=== PATIENT | male | born 1960 | race African-American/Black ===

== ENCOUNTER 2019-12-09 17:24 | Inpatient (IN) | payer OTHER ==
[~2019-12-09] VITALS: Ht 180.3 cm; Wt 59.9 kg
[2019-12-09] MEDS ORDERED: ACETAMINOPHEN 325 MG TABLET PO ONE (18:00)
--- NOTE | 2019-12-09 18:37 | NUR ---
PT REC'D TO ER VIA EMS PT WAS DRINKING FOR 3 DAYS POOR VEINS UNABLE TO ACCESS A LINE UA SENT TO [facility]ALUATION BY ER PROVIDER.
[2019-12-09 18:41] LABS: APPEARANCE,URINE Clear (CLEAR); BILIRUBIN,URINE Negative (NEGATIVE); BLOOD, URINE Negative Ery/uL (NEGATIVE); COLOR,URINE Yellow (YELLOW); KETONES,URINE Negative (NEGATIVE); LEUKOCYTE ESTERASE ,URINE Small (NEGATIVE); NITRITE, URINE Negative (NEGATIVE); PROTEIN,URINE Negative (NEGATIVE); UGLUCOSE Negative (NEGATIVE); UROBILINOGEN,URINE 0.2 EU/dL (0.2)
--- NOTE | 2019-12-09 18:47 | NUR ---
MD WILL DO ULTRASOUND TO ACCESS IV
[2019-12-09 18:58] LABS: BACTERIA,URINE Few /HPF (None Seen); SQUAMOUS EPITHELIAL CELL,UR Rare /HPF (None Seen)
[2019-12-09 18:59] LABS: RBC,URINE 0-2 /HPF (0-2)
[2019-12-09 19:01] LABS: BASOPHILS % (AUTO) 0.4 % (0.0-2.0); EOSINOPHILS % (AUTO) 0.1 % (0.0-6.0); HEMATOCRIT 35 % (39-51); HEMOGLOBIN 11.2 g/dL (13.5-17.5); LYMPHOCYTES # (AUTO) 0.6 /CMM (0.8-4.8); LYMPHOCYTES % (AUTO) 15.1 % (20.0-44.0); MEAN CORPUSCULAR HGB CONC 32 g/dl (31.0-36.0); MEAN CORPUSCULAR VOLUME 82 fL (80-96); MONOCYTES # (AUTO) 0.5 /CMM (0.1-1.30); MONOCYTES % (AUTO) 11.9 % (2.0-12.0); NEUTROPHILS # (AUTO) 3.1 /CMM (1.8-8.9); NEUTROPHILS % (AUTO) 72.5 % (43.0-81.0); PLATELET COUNT (AUTO) 118 /CMM (150-450); RED BLOOD CELL COUNT(AUTO) 4.19 MIL/uL (4.5-6.0); WHITE BLOOD COUNT (AUTO) 4.3 K/uL (4.3-11.0)
--- NOTE | 2019-12-09 19:04 | NUR ---
LEFT UPPER ARM FLUSHED
[2019-12-09 19:07] LABS: CALCIUM, SERUM 8.9 mg/dL (8.5-10.1); CARBON DIOXIDE 26 mmol/L (21-32); CHLORIDE 105 mmol/L (98-107); CREATININE 1.1 mg/dL (0.6-1.3); GLUCOSE 88 mg/dL (74-106); POTASSIUM 3.9 mmol/L (3.5-5.1); SODIUM SERUM 141 mmol/L (136-145); UREA NITROGEN, BLOOD 7 mg/dL (7-18)
[2019-12-09] MEDS ORDERED: ACETAMINOPHEN ES 500 MG TABLET ONE (19:08)
[2019-12-09] MEDS ORDERED: MORPHINE SULFATE INJ 4 MG/ML DISP.SYRIN ONE (19:08)
--- NOTE | 2019-12-09 19:13 | NUR ---
PT GIVEN MED S PER MDF ORDER
[2019-12-09] MEDS ORDERED: MORPHINE SULFATE INJ 2 MG/ML DISP.SYRIN IV ONE (19:30)
[2019-12-09] MEDS ORDERED: IV NS 0.9% 1,000 ML BAG IV ONE (20:00)
--- NOTE | 2019-12-09 21:15 | NUR ---
ER DOC ON PHONE WITH [facility]AL DOC
--- NOTE | 2019-12-10 04:35 | NUR ---
CALLED DR. RANGEL FOR ADMIT
--- NOTE | 2019-12-10 04:40 | NUR ---
CALLED SUP FOR TELE BED
--- NOTE | 2019-12-10 04:49 | NUR ---
REPORT GIVEN TO KELVIN PATEL FOR [facility].
[2019-12-10 06:05] VITALS: BP 126/66
--- NOTE | 2019-12-10 06:05 | NUR ---
TITLE ATTORNEY NOTES: RECEIVED PT ON ROOM AIR AND IS TOLERATING WELL. NO SOB NOTED. NO SOB NOTED. PT SAYING HE HAS GENERALIZED AND CHEST PAIN 08/10. PT REQUESTING FOR PAIN MEDS AND ANTIANXIETY MEDS. PT TO BE PLACED ON TELE BOX. INFORMED PT THAT HE IS NPO FOR NOW UNTIL SEEN BY A DOCTOR AND A DIET ORDER IS PLACED. BED KEPT IN LOW, LOCKED POSITION, AND SIDE RAILS X 2UP. WILL CONTINUE TO MONITOR PT. Addendum: 12/10/19 at 0725 by ALEXANDRA MCKEON RN NO IV NOTED AT THIS TIME. PT HARD STICK AND DEHYDRATED.
[2019-12-10] MEDS ORDERED: ONDANSETRON HCL/PF 4 MG/2 ML VIAL IV PRN (06:30)
[2019-12-10 06:51] VITALS: BP 126/66
--- NOTE | 2019-12-10 06:51 | NUR ---
SHIPPING AND RECEIVING OPERATOR NOTES: CALLED [phone] RANGEL'S ANSWERING SERVICE. PT REQUESTING FOR PAIN MEDS AND ALSO NEED DIET ORDER. AWAITING FOR CALLBACK.
--- NOTE | 2019-12-10 06:58 | NUR ---
MEAT TRIMMER NOTES: SPOKE WITH DR. RANGEL ; GOT ORDER FOR TYLENOL 650MG PO Q6HR PRN FOR PAIN , NORCO 5-325 PO Q4HR PRN PAIN, AND CARDIAC DIET. ALSO AWARE OF SR WITH SLIGHTLY ELEVATED T WAVE.
--- NOTE | 2019-12-10 07:27 | NUR ---
LAMINATING MACHINE OPERATOR HELPER CLOSING NOTES: ALL NEEDS WERE ATTENDED AND ANTICIPATED FOR. PT RESTING IN BED COMFORTABLY. NO SOB NOTED. NO S/S OF DISTRESS .PT ON ROOM AIR AND IS STABLE. PT ON TELE BOX AND READING SHOWS SR 70S WITH SLIGHTLY ELEVATED T WAVE. PT HAS NO IV AT THIS TIME. BED KEPT IN LOW, LOCKED POSITION, AND SIDE RAILS X 2UP. PT HAS $53 IN [place] AND $1.65 IN [place] COUNTED WITH ANOTHER STAFF, BLANE. PT REFUSING TO HAVE IT BROUGHT TO SAFE AND WOULD LIKE IT AT BEDSIDE. ENDORSED TO AM NURSE FOR [facility]. Addendum: 12/10/19 at 0730 by ALEXANDRA MCKEON RN ENDORSED THAT NEXT [facility] LAB SHOULD BE ORDERED 4 HOURS FROM THE MORNING ONE.
[2019-12-10] MEDS ORDERED: ACETAMINOPHEN 325 MG TABLET PO PRN (07:30)
[2019-12-10] MEDS ORDERED: HYDROCODONE/APAP 5/325MG 1 EACH TABLET PO PRN (07:30)
[2019-12-10] MEDS ORDERED: PANTOPRAZOLE 40 MG TABLET.DR PO SCH (07:30)
--- NOTE | 2019-12-10 07:32 | NUR ---
TELE/RN OPENING NOTE Patient received resting in bed, A/O x4, showing no signs of acute distress or SOB, saturating 100% on RA. According to sheet metal worker apprentice RN, patient has no IV line due to being a hard stick, recommends midline. clipper machine endorsed written admitting orders obtained from the MD, placed in chart and will give copy to pharmacy. Bed is in lowest position, side rails x3 in upright position, call light is within reach and patient is aware of how to call for assistance when needed. Safety and fall precautions enforced. Will continue with plan of care and admission process.
[2019-12-10 07:33] LABS: EOSINOPHILS % (AUTO) 0.3 % (0.0-6.0); HEMATOCRIT 34 % (39-51); HEMOGLOBIN 10.9 g/dL (13.5-17.5); LYMPHOCYTES # (AUTO) 0.6 /CMM (0.8-4.8); LYMPHOCYTES % (AUTO) 25.7 % (20.0-44.0); MEAN CORPUSCULAR HGB CONC 32 g/dl (31.0-36.0); MEAN CORPUSCULAR VOLUME 83 fL (80-96); MONOCYTES # (AUTO) 0.5 /CMM (0.1-1.30); NEUTROPHILS # (AUTO) 1.3 /CMM (1.8-8.9); PLATELET COUNT (AUTO) 107 /CMM (150-450); RED BLOOD CELL COUNT(AUTO) 4.06 MIL/uL (4.5-6.0); WHITE BLOOD COUNT (AUTO) 2.4 K/uL (4.3-11.0)
[2019-12-10 07:35] LABS: CALCIUM, SERUM 8.7 mg/dL (8.5-10.1); CARBON DIOXIDE 25 mmol/L (21-32); CHLORIDE 102 mmol/L (98-107); CREATININE 0.9 mg/dL (0.6-1.3); GLUCOSE 78 mg/dL (74-106); SODIUM SERUM 137 mmol/L (136-145); UREA NITROGEN, BLOOD 5 mg/dL (7-18)
[2019-12-10 08:00] VITALS: BP 133/88
[2019-12-10 09:24] LABS: CHOLESTEROL 149 mg/dL (<200); HDL CHOLESTEROL 88 mg/dL (40-60); LDL 55 mg/dL (0-99); TRIGLYCERIDES 32 mg/dL (30-150)
[2019-12-10] MEDS ORDERED: ALPRAZOLAM 0.25 MG TABLET PO PRN (09:30)
[2019-12-10] MEDS ORDERED: THIAMINE HCL 100 MG TABLET PO SCH (10:00)
[2019-12-10] MEDS ORDERED: LORAZEPAM 1 MG TABLET PO PRN (10:00)
[2019-12-10] MEDS ORDERED: FOLIC ACID 1 MG TABLET PO SCH (10:00)
[2019-12-10 16:00] VITALS: BP 132/96
--- NOTE | 2019-12-10 16:00 | NUR ---
MS/CYBER SECURITY NOTE Patient was admitted this AM and is medically stable for discharge today. MD is aware. Patient is A/O x4, is in no acute distress, no SOB, vital signs WNL, saturating 100% on RA. All patient needs met, all due meds given, patient kept clean and comfortable throughout his shift. DC instructions provided and patient verbalized understanding. Patient had skin assessment and photos placed in chart this AM. Patient left unit on wheelchair. Patient has been approved to stay at an assisted living facility. He is being driven to the assisted living facility by his friend in a private car.
[2019-12-10] MEDS ORDERED: ZIPRASIDONE 20 MG CAPSULE PO SCH (17:00)
[2019-12-10] MEDS ORDERED: TRAZODONE 50 MG TABLET PO SCH (22:00)
[2019-12-11] MEDS ORDERED: ZIPRASIDONE 20 MG CAPSULE PO SCH (09:00)
[2019-12-11] MEDS ORDERED: ASPIRIN EC 81 MG TABLET.DR PO SCH (09:00)
[2019-12-11] MEDS ORDERED: SERTRALINE HCL 50 MG TABLET PO SCH (09:00)
== END 2019-12-10 16:20 | DRG 204 ==
LOC: ER 17:24 → TELE 12-10 05:33
PROVIDERS: ADMIT Internal Medicine; ATTEND Internal Medicine
DX: I95.1 Orthostatic hypotension (principal); D61.818 Other pancytopenia; I48.0 Paroxysmal atrial fibrillation; F10.20 Alcohol dependence, uncomplicated; G40.909 Epilepsy, unspecified, not intractable, without status epilepticus; E11.9 Type 2 diabetes mellitus without complications; R07.89 Other chest pain; F31.9 Bipolar disorder, unspecified; I10 Essential (primary) hypertension; J45.909 Unspecified asthma, uncomplicated; Z88.0 Allergy status to penicillin; Z91.041 Radiographic dye allergy status; W18.30XA Fall on same level, unspecified, initial encounter; Y92.099 Unspecified place in other non-institutional residence as the place of occurrence of the external cause; Z98.890 Other specified postprocedural states; Z82.49 Family history of ischemic heart disease and other diseases of the circulatory system; Z59.0 Homelessness
CPT/HCPCS: 36415; 70450-TC; 71045-TC; 80048-TC; 80061-TC; 81000-TC; 84484-TC; 85025-TC; 87081-TC; 87086-TC; 93307-TC; 93880-TC; G0378; J2270; J7030

== ENCOUNTER 2019-12-20 22:00 | Emergency (ER) | payer OTHER ==
[~2019-12-20] VITALS: Ht 177.8 cm; Wt 71.7 kg
--- NOTE | 2019-12-20 22:00 | NUR ---
PT 59YO MALE HX OF HTN COPD DM DEPRESSION C/C OF ABD PAIN +N/V/D, RT ELBOW AND RT SHOULDER, RT KNEE PAIN S/P GLF, -LOC, -KO, PT AWAKE, ALERT, -SOB, PLACED ON MONITOR, VSS, -SOB, PENDING MD COLLINS
[2019-12-20] MEDS ORDERED: IV NS 0.9% 500 ML BAG IV ONE (22:30)
[2019-12-20] MEDS ORDERED: ONDANSETRON HCL/PF 4 MG/2 ML VIAL IVP ONE (22:30)
[2019-12-20] MEDS ORDERED: ONDANSETRON HCL/PF 4 MG/2 ML VIAL ONE (22:39)
[2019-12-20 22:47] LABS: BASOPHILS % (AUTO) 0.1 % (0.0-2.0); EOSINOPHILS % (AUTO) 0.5 % (0.0-6.0); HEMATOCRIT 31 % (39-51); HEMOGLOBIN 10.2 g/dL (13.5-17.5); LYMPHOCYTES # (AUTO) 1.1 /CMM (0.8-4.8); LYMPHOCYTES % (AUTO) 28.7 % (20.0-44.0); MEAN CORPUSCULAR HGB CONC 33 g/dl (31.0-36.0); MEAN CORPUSCULAR VOLUME 81 fL (80-96); MONOCYTES # (AUTO) 0.4 /CMM (0.1-1.30); MONOCYTES % (AUTO) 10.3 % (2.0-12.0); NEUTROPHILS # (AUTO) 2.2 /CMM (1.8-8.9); NEUTROPHILS % (AUTO) 60.4 % (43.0-81.0); PLATELET COUNT (AUTO) 143 /CMM (150-450); RED BLOOD CELL COUNT(AUTO) 3.84 MIL/uL (4.5-6.0); WHITE BLOOD COUNT (AUTO) 3.7 K/uL (4.3-11.0)
[2019-12-20 22:56] LABS: CALCIUM, SERUM 8.6 mg/dL (8.5-10.1); CREATININE 1.2 mg/dL (0.6-1.3)
[2019-12-20 23:02] LABS: ALBUMIN 3.3 g/dL (3.4-5.0); BILIRUBIN,DIRECT 0.1 mg/dL (0.0-0.2); BILIRUBIN,TOTAL 0.2 mg/dL (0.2-1.0); TOTAL PROTEIN, SERUM 7.5 g/dL (6.4-8.2)
--- NOTE | 2019-12-21 00:33 | NUR ---
Patient discharged to home in stable condition. Written and verbal after care instructions given. Patient verbalizes understanding of instruction.
[2019-12-21 00:53] VITALS: BP 132/80
== END 2019-12-21 00:54 | disposition home or self-care (01) ==
LOC: ER 22:01
DX: S50.01XA Contusion of right elbow, initial encounter (principal); S40.011A Contusion of right shoulder, initial encounter; S80.01XA Contusion of right knee, initial encounter; K52.9 Noninfective gastroenteritis and colitis, unspecified; I10 Essential (primary) hypertension; J45.909 Unspecified asthma, uncomplicated; E11.9 Type 2 diabetes mellitus without complications; Z98.890 Other specified postprocedural states; Z88.0 Allergy status to penicillin; Z91.048 Other nonmedicinal substance allergy status; W18.39XA Other fall on same level, initial encounter; Y93.89 Activity, other specified; Y92.89 Other specified places as the place of occurrence of the external cause; Y99.8 Other external cause status
CPT/HCPCS: 36415; 73020; 73070; 73560; 80048; 80076; 83690; 85025; 96361; 96374; 99284; J2405; J7040

== ENCOUNTER 2022-11-09 21:04 | Emergency (ER) | payer OTHER ==
[~2022-11-09] VITALS: Ht 172.7 cm; Wt 68.0 kg
--- NOTE | 2022-11-09 21:06 | NUR ---
SO FROM [facility] C/O [facility] FOR A FEW DAYS. PT A/OX3. TOLERATING R/A WELL WITH NO RESP DISTRESS. PT GOWN, BELONGINGS COLLECTED PLACED IN LOCKER, WANDED BY SECURITY. SAFETY MEASURES IN PLACE.
--- NOTE | 2022-11-09 22:48 | NUR ---
PT REFUSED CT SCAN
--- NOTE | 2022-11-09 23:00 | NUR ---
PT REFUSED BLOOD DRAW
--- NOTE | 2022-11-09 23:10 | NUR ---
PT RETURNED TO ER [address]
--- NOTE | 2022-11-10 00:22 | NUR ---
netsuite consultant ana blood
[2022-11-10 00:24] LABS: BASOPHILS % (AUTO) 0.1 % (0.0-2.0); HEMATOCRIT 34 % (39-51); HEMOGLOBIN 10.9 g/dL (13.5-17.5); LYMPHOCYTES % (AUTO) 34.8 % (20.0-44.0); MEAN CORPUSCULAR HGB CONC 32 g/dl (31.0-36.0); MEAN CORPUSCULAR VOLUME 90 fL (80-96); MONOCYTES # (AUTO) 0.2 K/uL (0.1-1.30); MONOCYTES % (AUTO) 5.5 % (2.0-12.0); NEUTROPHILS # (AUTO) 1.7 K/uL (1.8-8.9); NEUTROPHILS % (AUTO) 59.6 % (43.0-81.0); PLATELET COUNT (AUTO) 109 K/uL (150-450); RED BLOOD CELL COUNT(AUTO) 3.79 MIL/uL (4.5-6.0); WHITE BLOOD COUNT (AUTO) 2.9 K/uL (4.3-11.0)
--- NOTE | 2022-11-10 00:25 | NUR ---
COVID SWAB COLLECTED AND SENT TO LAB PROVIDED PT W URINE CUP; PT NOT ABLE TO GIVE URINE. AWAITING URINE SAMPLE
[2022-11-10 00:37] LABS: CALCIUM, SERUM 8.8 mg/dL (8.5-10.1); CARBON DIOXIDE 21 mmol/L (21-32); CHLORIDE 105 mmol/L (98-107); CREATININE 1.1 mg/dL (0.6-1.3); GLUCOSE 97 mg/dL (74-106); POTASSIUM 3.9 mmol/L (3.5-5.1); SODIUM SERUM 141 mmol/L (136-145); UREA NITROGEN, BLOOD 10 mg/dL (7-18)
[2022-11-10 00:44] LABS: ALANINE AMINOTRANSFERASE 15 U/L (12-78); ALBUMIN 3.6 g/dL (3.4-5.0); ALCOHOL, BLOOD 270 mg/dL (0-0); ALKALINE PHOSPHATASE 126 U/L (46-116); ASPARTATE AMINOTRANSFERASE 23 U/L (15-37); BILIRUBIN,DIRECT 0.1 mg/dL (0.0-0.2); BILIRUBIN,TOTAL 0.2 mg/dL (0.2-1.0); TOTAL PROTEIN, SERUM 8.3 g/dL (6.4-8.2)
--- NOTE | 2022-11-10 00:58 | NUR ---
URINE COLLECTED AND SENT TO LAB
[2022-11-10 01:57] LABS: BILIRUBIN,URINE NEGATIVE (NEGATIVE); COLOR,URINE YELLOW (YELLOW); LEUKOCYTE ESTERASE ,URINE NEGATIVE (NEGATIVE); NITRITE, URINE NEGATIVE (NEGATIVE); PROTEIN,URINE 2+ mg/dl (NEGATIVE); UGLUCOSE NEGATIVE (NEGATIVE); UROBILINOGEN,URINE 0.2 EU/dL (0.2)
[2022-11-10 01:58] LABS: BACTERIA,URINE None seen /HPF (None Seen); SQUAMOUS EPITHELIAL CELL,UR Few /HPF (None Seen); WBC,URINE 0-2 /HPF (0-3)
--- NOTE | 2022-11-10 10:00 | NUR ---
PT VERBALIZED THAT HE WANTED TO LEAVE THE HOSPITAL. PT CURRENTLY NOT ON HOLD; DENIES SI/HI AT THIS TIME. DR SCHULTZ MADE AWARE.
--- NOTE | 2022-11-10 10:20 | NUR ---
Patient discharged to home/homeless in stable condition. Homeless waiver/resources refused by pt at this time. Written and verbal after care instructions given. Patient verbalizes understanding of instruction.
[2022-11-10 10:23] VITALS: BP 125/72
== END 2022-11-10 10:40 | disposition home or self-care (01) ==
LOC: ER 21:06
DX: R45.851 Suicidal ideations (principal); R19.7 Diarrhea, unspecified; R07.9 Chest pain, unspecified; R10.31 Right lower quadrant pain; R10.32 Left lower quadrant pain; R00.0 Tachycardia, unspecified; J45.909 Unspecified asthma, uncomplicated; E11.9 Type 2 diabetes mellitus without complications; I10 Essential (primary) hypertension; I25.2 Old myocardial infarction; I25.10 Atherosclerotic heart disease of native coronary artery without angina pectoris; Z20.822 Contact with and (suspected) exposure to COVID-19; Z88.0 Allergy status to penicillin; Z91.041 Radiographic dye allergy status; Z59.00 Homelessness unspecified
CPT/HCPCS: 99285; 93005; 74176; 36415; 80307; 85025; 80048; 80076; 81001; 84484; 87426; 80143; 80320; C9803; G0480

== ENCOUNTER 2023-08-23 19:09 | Emergency (ER) | payer OTHER ==
[~2023-08-23] VITALS: Ht 188 cm; Wt 78.0 kg
[2023-08-23 21:19] LABS: BASOPHILS % (AUTO) 0.1 % (0.0-2.0); HEMATOCRIT 40 % (39-51); HEMOGLOBIN 12.8 g/dL (13.5-17.5); LYMPHOCYTES # (AUTO) 1.2 K/uL (0.8-4.8); LYMPHOCYTES % (AUTO) 44.6 % (20.0-44.0); MEAN CORPUSCULAR HEMOGLOBIN 27 PG (26.0-33.0); MEAN CORPUSCULAR HGB CONC 32 g/dl (31.0-36.0); MEAN CORPUSCULAR VOLUME 82 fL (80-96); MONOCYTES # (AUTO) 0.2 K/uL (0.1-1.30); MONOCYTES % (AUTO) 7.2 % (2.0-12.0); NEUTROPHILS # (AUTO) 1.3 K/uL (1.8-8.9); NEUTROPHILS % (AUTO) 48.1 % (43.0-81.0); PLATELET COUNT (AUTO) 70 K/uL (150-450); RED BLOOD CELL COUNT(AUTO) 4.82 MIL/uL (4.5-6.0); RED CELL DISTRIBUTION WIDTH 20.8 % (11.5-15.0); WHITE BLOOD COUNT (AUTO) 2.7 K/uL (4.3-11.0)
[2023-08-23 21:40] LABS: POTASSIUM 3.5 mmol/L (3.5-5.1)
[2023-08-23 21:45] LABS: ALBUMIN 4.1 g/dL (3.4-5.0); BILIRUBIN,DIRECT 0.2 mg/dL (0.0-0.2); BILIRUBIN,TOTAL 0.5 mg/dL (0.2-1.0); TOTAL PROTEIN, SERUM 8.3 g/dL (6.4-8.2)
[2023-08-23 21:46] LABS: ACETAMINOPHEN < 10 ug/ml (10-30); ALCOHOL, BLOOD 365 mg/dL (0-10); SALICYLATE 9.5 mg/dL (2.8-20.0)
[2023-08-23 22:31] LABS: ANISOCYTOSIS 1+; LYMPHOCYTES % (MANUAL) 48 % (16-48); MONOCYTES % (MANUAL) 6 % (0-11.0); NEUTROPHILS % (MANUAL) 46 (42-76); PLATELET ESTIMATE DECREASED
[2023-08-23 22:32] LABS: TARGET CELLS 1+
[2023-08-23 23:46] LABS: APPEARANCE,URINE CLEAR (CLEAR); BILIRUBIN,URINE NEGATIVE (NEGATIVE); BLOOD, URINE TRACE-INTA Ery/uL (NEGATIVE); COLOR,URINE YELLOW (YELLOW); KETONES,URINE NEGATIVE (NEGATIVE); LEUKOCYTE ESTERASE ,URINE 1+ (NEGATIVE); NITRITE, URINE NEGATIVE (NEGATIVE); PROTEIN,URINE NEGATIVE (NEGATIVE); UGLUCOSE NEGATIVE (NEGATIVE)
[2023-08-24 00:19] LABS: ADD URINE CULTURE YES; BACTERIA,URINE 1+ /HPF (None Seen); RBC,URINE 0-2 /HPF (0-2); SQUAMOUS EPITHELIAL CELL,UR 0-2 /HPF (None Seen)
[2023-08-24] MEDS ORDERED: ONDANSETRON 4 MG TAB.RAPDIS ONE (02:20)
[2023-08-24] MEDS ORDERED: ONDANSETRON 4 MG TAB.RAPDIS SL ONE (02:30)
[2023-08-24 03:11] LABS: AMPHETAMINE, URINE NEGATIVE (NEGATIVE); BARBITURATE, URINE NEGATIVE (NEGATIVE); BENZODIAZEPINE, URINE NEGATIVE (NEGATIVE); CANNABINOID, URINE NEGATIVE (NEGATIVE); COCCAINE, URINE NEGATIVE (NEGATIVE); OPIATE, URINE NEGATIVE (NEGATIVE); PHENCYCLIDINE SCREEN,URINE NEGATIVE (NEGATIVE)
[2023-08-24 05:52] VITALS: BP 128/80; TEMP 98.2; O2SAT 100
== END 2023-08-24 05:52 | disposition home or self-care (01) ==
LOC: ER 19:11
DX: R45.851 Suicidal ideations (principal); F10.129 Alcohol abuse with intoxication, unspecified; D69.6 Thrombocytopenia, unspecified; E11.9 Type 2 diabetes mellitus without complications; I10 Essential (primary) hypertension; Z20.822 Contact with and (suspected) exposure to COVID-19; J45.909 Unspecified asthma, uncomplicated; Y90.8 Blood alcohol level of 240 mg/100 ml or more; Z88.0 Allergy status to penicillin; Z91.040 Latex allergy status
CPT/HCPCS: 99285; 71045; 85025; 80048; 87086; 80076; 85007; 81001; 36415 ×2; 87426; 80143; 80320 ×2; 80307; C9803; Q0162; G0480